=== PATIENT | male | born 1965 | race Caucasian/White ===

== ENCOUNTER 2019-10-25 16:56 | Emergency (ER) | payer OTHER ==
[~2019-10-25] VITALS: Ht 190.5 cm; Wt 107.0 kg
[2019-10-25] MEDS ORDERED: BUPROPION HCL300 MG PO (17:50)
[2019-10-25] MEDS ORDERED: LISINOPRIL10 M1 PO (17:50)
[2019-10-25] MEDS ORDERED: MOTRIN400 MG PO (19:17)
[2019-10-25] MEDS ORDERED: ORPHENADRINE100 MG PO (19:17)
[2019-10-25 19:35] VITALS: BP 158/88
== END 2019-10-25 19:35 | disposition home or self-care (01) | DRG 552 ==
LOC: ED 16:56
DX: S16.1XXA Strain of muscle, fascia and tendon at neck level, initial encounter (principal); S09.90XA Unspecified injury of head, initial encounter; V43.62XA Car passenger injured in collision with other type car in traffic accident, initial encounter